=== PATIENT | female | born 1985 | race Two or more races ===

== ENCOUNTER 2022-12-16 12:15 | Emergency (ER) | payer OTHER ==
[~2022-12-16] VITALS: Ht 165.1 cm; Wt 72.6 kg
[2022-12-16] MEDS ORDERED: SILVADENE20 GM TOP (13:02)
[2022-12-16] MEDS ORDERED: DICLOFENAC SODI75 MG PO (13:02)
[2022-12-16] MEDS ORDERED: DUI500 PO (13:02)
== END 2022-12-16 13:51 | disposition home or self-care (01) ==
LOC: ER 12:15
DX: T22.211A Burn of second degree of right forearm, initial encounter (principal); X08.8XXA Exposure to other specified smoke, fire and flames, initial encounter; Y93.G3 Activity, cooking and baking; Y92.9 Unspecified place or not applicable; Y99.9 Unspecified external cause status